=== PATIENT | male | born 1985 ===

== ENCOUNTER → 2019-03-08 | Outpatient (CLI) | payer OTHER ==
[~2019-03-08] MED LIST: CEPH500T7 PO; DIME240C2 PO; FAMO20TA28 PO; HYDR-389 PO; IBUP800T37 PO; OMEG1CAP39 PO; PHEN200T32 PO; VARD20TA31 PO
[2019-03-08 12:05] LABS: PLATELET COUNT, AUTOMATED 248 K/uL (150-450)
[2019-03-08 13:22] LABS: LDL CHOLESTEROL 145 mg/dl
== END ==
LOC: LAB 11:18
PROVIDERS: ATTEND Internal Medicine
DX: N52.9 Male erectile dysfunction, unspecified (principal); G35 Multiple sclerosis; Z71.89 Other specified counseling
CPT/HCPCS: 36415; 82040; 82247; 82306; 82310; 82374; 82435; 82465; 82565; 82947; 83718; 84075; 84132; 84155; 84295; 84443; 84450; 84460; 84478; 84520; 85025; 86735; 86762; 86765; 86787